=== PATIENT | male | born 1980 | race Caucasian/White ===

== ENCOUNTER 2016-09-29 15:58 | Emergency (ER) | payer OTHER ==
[2016-09-29 16:12] VITALS: O2SAT 98
--- NOTE | 2016-09-29 16:13 | ED.PDOC ---
History of Present Illness - General Chief Complaint: Lower Extremity Injury Stated Complaint: left ankle injury Time Seen by Provider: 09/29/16 16:08 Source: patient, RN notes reviewed, Vital Signs reviewed Exam Limitations: no limitations - History of Present Illness Initial Comments: Patient reports that he rolled his left ankle about 1.5 hours ago. Pain, swelling of ankle with limited weight-bearing and ROM. Occurred: just prior to arrival Pain - Lower Extremity: moderate: Left Ankle Method of Injury: twisted Improving Factors: cold therapy, immobilization, rest Worsening Factors: movement Allergies/Adverse Reactions: Allergies Amoxicillin Allergy (Unknown, Verified 01/23/13 16:22) Home Medications: Ambulatory Orders Acetaminophen W/ Codeine [Tylenol w/Codeine 300-30 mg] 1 tab PO Q4HR PRN #30 tab 02/15/16 Review of Systems - Review of Systems Constitutional: States: no symptoms reported Respiratory: States: no symptoms reported Cardiology: States: no symptoms reported Musculoskeletal: States: see HPI, joint pain - L ankle, joint swelling - L ankle Skin: States: no symptoms reported. Denies: change in color Neurological: States: no symptoms reported. Denies: numbness, paresthesia, tingling, weakness Endocrine: States: no symptoms reported Past Medical History (General) - Patient Medical History Hx Seizures: No Hx Stroke: No Hx Dementia: No Hx Asthma: No Hx of COPD: No Hx Cardiac Disorders: No Hx Congestive Heart Failure: No Hx Pacemaker: No Hx Hypertension: No Hx Thyroid Disease: No Hx Diabetes: Yes Hx Gastroesophageal Reflux: No Hx Renal Disease: No Hx Cancer: No Hx of HIV: No Hx Hepatitis C: No Hx MRSA: No - Vaccination History Hx Tetanus, Diphtheria Vaccination: No Hx Influenza Vaccination: No Hx Pneumococcal Vaccination: No - Social History Hx Tobacco Use: No Hx Alcohol Use: No Hx Substance Use: No Hx Substance Use Treatment: No Hx Depression: No Family Medical History - Family History Mother Family History: No Known Physical Exam - Physical Exam General Appearance: Alert, Comfortable, No apparent distress, Well Developed, Well Groomed, Well Hydrated, Well Nourished Cardiovascular/Respiratory: normal peripheral pulses, no respiratory distress Thigh/Hip: normal inspection, non-tender, no evidence of injury Leg: normal inspection, non-tender, no evidence of injury Knee: normal inspection, non-tender, no evidence of injury, normal ROM Ankle: bone tenderness - Left lateral ankle, limited ROM, soft tissue tenderness , swelling Foot: normal inspection, non-tender, no evidence of injury, normal ROM Neuro/Tendon: normal sensation, normal motor functions, normal tendon functions Mental Status: alert, oriented x 3 Skin: normal color, warm/dry Progress - EKG/XRAY/CT XRAY: ankle - No fracture Departure - Departure Clinical Impression: Left ankle sprain Time of Disposition: 16:46 Disposition: Discharge to Home or Self Care Condition: Good Departure Forms: ED Discharge - Pt. Copy, Patient Portal Self Enrollment Diet: resume usual diet Activity: increase activity as tolerated Home Medications: Ambulatory Orders Acetaminophen W/ Codeine [Tylenol w/Codeine 300-30 mg] 1 tab PO Q4HR PRN #30 tab 02/15/16 Additional Instructions: Wear splint while up for 3-7 days Rest, Ice and Elevate foot
--- NOTE | 2016-09-29 16:39 | RAD ---
EXAM: Ankle,Left 3 Views CLINICAL INDICATION: 35-year-old male with pain status post rolling ankle. TECHNIQUE: Three views LEFT ankle were obtained in AP, lateral and oblique projections. COMPARISON: 03/20/2012. FINDINGS: There is no fracture or dislocation. The joint spaces are preserved. Mild soft tissue swelling at the level of the lateral malleolus. Small plantar heel spur and Achilles tendon enthesophyte. IMPRESSION: Mild lateral malleolar soft tissue swelling without findings to suggest fracture or dislocation. Electronically signed by: Natalya Haley MD 09/29/2016 4:38 PM [employer]
[2016-09-29 17:01] VITALS: BP 132/87; TEMP 98.4
== END 2016-09-29 17:00 | disposition home or self-care (01) ==
LOC: ER 15:58
DX: S93.402A Sprain of unspecified ligament of left ankle, initial encounter (principal); Z88.3 Allergy status to other anti-infective agents; X50.1XXA Overexertion from prolonged static or awkward postures, initial encounter; Y92.9 Unspecified place or not applicable

== ENCOUNTER 2017-04-19 13:01 | Emergency (ER) | payer OTHER ==
[2017-04-19] MEDS ORDERED: predniSONE 20 MG TAB PO ONE (13:28)
[2017-04-19 13:29] VITALS: BP 142/98; TEMP 97.8; O2SAT 96
[2017-04-19] MEDS ORDERED: MONTELUKAST 10 MG TAB PO ONE (13:29)
--- NOTE | 2017-04-19 13:31 | ED.PDOC ---
History of Present Illness - General Chief Complaint: Skin/Abrasion/Tear Stated Complaint: GENERALIZED RASH Time Seen by Provider: 04/19/17 13:02 Source: patient Exam Limitations: no limitations - History of Present Illness Initial Comments: he patient's 36-year-old male presenting to the emergency room secondary to what appears to be hives present on his torso and extremities for the last 5 days or so. He does have a history of asthmaand some seasonal allergies. He has been using some Benadryl. Has no evidence of an infectious cellulitis. No blisters or pustules. No oral lesions. No fevers. Timing/Duration: 1 week Severity: mild Improving Factors: nothing Worsening Factors: nothing Associated Symptoms: denies symptoms Allergies/Adverse Reactions: Allergies Amoxicillin Allergy (Unknown, Verified 01/23/13 16:22) Home Medications: Ambulatory Orders Acetaminophen W/ Codeine [Tylenol w/Codeine 300-30 mg] 1 tab PO Q4HR PRN #30 tab 02/15/16 Montelukast [Singulair] 10 mg PO DAILY #20 tab 04/19/17 Review of Systems - Review of Systems Constitutional: States: no symptoms reported EENTM: States: no symptoms reported Respiratory: States: no symptoms reported Cardiology: States: no symptoms reported Gastrointestinal/Abdominal: States: no symptoms reported Genitourinary: States: no symptoms reported Musculoskeletal: States: no symptoms reported Skin: States: see HPI Neurological: States: no symptoms reported Endocrine: States: no symptoms reported All other Systems: No Change from Baseline Past Medical History (General) - Patient Medical History Hx Seizures: No Hx Stroke: No Hx Dementia: No Hx Asthma: No Hx of COPD: No Hx Cardiac Disorders: No Hx Congestive Heart Failure: No Hx Pacemaker: No Hx Hypertension: No Hx Thyroid Disease: No Hx Diabetes: Yes Hx Gastroesophageal Reflux: No Hx Renal Disease: No Hx Cancer: No Hx of HIV: No Hx Hepatitis C: No Hx MRSA: No - Vaccination History Hx Tetanus, Diphtheria Vaccination: No Hx Influenza Vaccination: No Hx Pneumococcal Vaccination: No - Social History Hx Tobacco Use: No Hx Alcohol Use: No Hx Substance Use: No Hx Substance Use Treatment: No Hx Depression: No Hx Physical Abuse: No Hx Emotional Abuse: No Hx Suspected Abuse: No Family Medical History - Family History Mother Family History: No Known Physical Exam - Physical Exam General Appearance: Alert, Comfortable, No apparent distress Eye Exam: bilateral normal Ears, Nose, Throat: normal ENT inspection, normal pharynx Neck: full range of motion, supple Respiratory: lungs clear, normal breath sounds, no respiratory distress, no accessory muscle use Cardiovascular/Chest: normal peripheral pulses, no edema Peripheral Pulses: radial,right: 2+, radial,left: 2+, dorsalis pedis,right: 2+, dorsalis pedis,left: 2+ Gastrointestinal/Abdominal: non tender, soft Rectal Exam: deferred Back Exam: no CVA tenderness, no vertebral tenderness Extremity: normal range of motion, non-tender, no pedal edema, normal capillary refill Neurologic: alert, normal mood/affect, oriented x 3 Skin Exam: normal color Comments: with the exception of lesions on the torso and extremities are consistent with either nummular eczema or hives at different stages. Progress - Progress Progress: 04/19/17 13:31 the patient is a 36-year-old male presenting with what appears to be either hives or nummular eczema of less than a week's duration. The patient is given a dose of prednisone here today but this will not be continued due to his borderline diabetes. The patient will be placed on Singulair daily for the next few weeks. He can additionally take xyzal twice daily for the next few days and then once daily for at least a week after the symptoms have cleared. He needs to keep well-hydrated. He needs to follow up with his primary care doctor for his diabetes. ER warnings were given. Departure - Departure Clinical Impression: Full body hives Disposition: Discharge to Home or Self Care Condition: Fair Departure Forms: ED Discharge - Pt. Copy, Patient Portal Self Enrollment Instructions: DI for Hives Diet: diabetic diet Activity: increase activity as tolerated Referrals: Alondra Hand NP [Primary Care Provider] - 1-2 Weeks Prescriptions: Montelukast [Singulair] 10 mg PO DAILY #20 tab Home Medications: Ambulatory Orders Acetaminophen W/ Codeine [Tylenol w/Codeine 300-30 mg] 1 tab PO Q4HR PRN #30 tab 02/15/16 Montelukast [Singulair] 10 mg PO DAILY #20 tab 04/19/17 Additional Instructions: the patient is a 36-year-old male presenting with what appears to be either hives or nummular eczema of less than a week's duration. The patient is given a dose of prednisone here today but this will not be continued due to his borderline diabetes. The patient will be placed on Singulair daily for the next few weeks. He can additionally take xyzal twice daily for the next few days and then once daily for at least a week after the symptoms have cleared. He needs to keep well-hydrated. He needs to follow up with his primary care doctor for his diabetes. ER warnings were given.
== END 2017-04-19 13:48 | disposition home or self-care (01) ==
LOC: ER 13:01
DX: L50.9 Urticaria, unspecified (principal); Z88.3 Allergy status to other anti-infective agents

== ENCOUNTER 2017-12-22 20:49 | Emergency (ER) | payer OTHER ==
[2017-12-22] MEDS ORDERED: DEXAMETHASONE INJ 10 MG/ML VIAL IM ONE (21:09)
--- NOTE | 2017-12-22 21:09 | ED.PDOC ---
History of Present Illness - General Chief Complaint: Asthma Stated Complaint: SOB Time Seen by Provider: 12/22/17 21:08 Source: patient, family Exam Limitations: no limitations - History of Present Illness Initial Comments: Dariel Vidal 37 y/o male with history of asthma stated that he had sob and wheezing the last 2 days which got worse today .Had mowed his aunts lawn yesterday.He stated never had exacerbation but had some viral respiratory illness 5 years ago with recurrence of his asthma. Timing/Duration: other - see hpi Severity: moderate Possible Cause: occasional episodes, allergen exposure Improving Factors: nothing Worsening Factors: nothing Associated Symptoms: nasal congestion, nasal drainage Respiratory Risk Factors: exposure to allergen Allergies/Adverse Reactions: Allergies Amoxicillin Allergy (Unknown, Verified 01/23/13 16:22) Home Medications: Ambulatory Orders Acetaminophen W/ Codeine [Tylenol w/Codeine 300-30 mg] 1 tab PO Q4HR PRN #30 tab 02/15/16 Montelukast [Singulair] 10 mg PO DAILY #20 tab 04/19/17 Albuterol Inhaler [Ventolin Hfa Inhaler] 108 mcg IN Q4HR PRN #1 inh 12/22/17 Albuterol Sulfate Nebs [Proventil Nebs] 2.5 mg INH Q6HRS PRN #60 vial 12/22/17 predniSONE 20 mg PO DAILY 7 Days #7 tab 12/22/17 Review of Systems - Review of Systems Constitutional: States: no symptoms reported EENTM: States: nose congestion Respiratory: States: see HPI Cardiology: States: no symptoms reported Gastrointestinal/Abdominal: States: no symptoms reported All other Systems: Reviewed and Negative, No Change from Baseline Past Medical History (General) - Patient Medical History Hx Seizures: No Hx Stroke: No Hx Dementia: No Hx Asthma: Yes Hx of COPD: No Hx Cardiac Disorders: No Hx Congestive Heart Failure: No Hx Pacemaker: No Hx Hypertension: No Hx Thyroid Disease: No Hx Diabetes: Yes Hx Gastroesophageal Reflux: No Hx Renal Disease: No Hx Cancer: No Hx of HIV: No Hx Hepatitis C: No Hx MRSA: No Surgical History: no surgical history - Vaccination History Hx Tetanus, Diphtheria Vaccination: No Hx Influenza Vaccination: No Hx Pneumococcal Vaccination: No - Social History Hx Tobacco Use: No Hx Alcohol Use: No Hx Substance Use: No Hx Substance Use Treatment: No Hx Depression: No Hx Physical Abuse: No Hx Emotional Abuse: No Hx Suspected Abuse: No Family Medical History - Family History Mother Family History: No Known Hx Family Asthma: Yes - children Father Hx Family Asthma: No Hx Family Congestive Heart Failure: No Hx Family Hypertension: No Hx Family Stroke: No Hx Cardiac Disease: No Hx Family Diabetes: Yes Hx Family Cancer: No Physical Exam - Physical Exam General Appearance: Alert, Comfortable, No apparent distress Eye Exam: bilateral normal ENT Exam: nasal congestion, nasal drainage Neck: full range of motion, supple, normal inspection, trachea midline Respiratory: no respiratory distress, no accessory muscle use, wheezing Cardiovascular/Chest: normal peripheral pulses, regular rate, rhythm, no murmur Gastrointestinal/Abdominal: normal bowel sounds, non tender, soft, no organomegaly Extremity: no pedal edema, no calf tenderness Neurologic: alert, oriented x 3 Skin Exam: normal color, warm/dry Progress - Progress Progress: 12/22/17 21:58 Vital Signs - 8 hr 12/22/17 12/22/17 20:50 21:28 Temperature 98.5 F Pulse Rate [ 108 H Left Arm] Respiratory 18 18 Rate Blood Pressure 136/91 [Left Arm] O2 Sat by Pulse 97 Oximetry 12/22/17 22:24 Re examined after breathing treatment and given steroids no wheezing on auscultation - EKG/XRAY/CT XRAY: chest - no acute cardiopulmonary disease Departure - Departure Clinical Impression: Asthma exacerbation Time of Disposition: 22:01 Disposition: Discharge to Home or Self Care Condition: Good Departure Forms: ED Discharge - Pt. Copy, Patient Portal Self Enrollment Instructions: DI for Asthma -- Adult Referrals: Blanca Daly NP [Primary Care Provider] - 1-2 Weeks Prescriptions: Albuterol Inhaler [Ventolin Hfa Inhaler] 108 mcg IN Q4HR PRN #1 inh PRN Reason: Wheezing Albuterol Sulfate Nebs [Proventil Nebs] 2.5 mg INH Q6HRS PRN #60 vial PRN Reason: Wheezing predniSONE 20 mg PO DAILY 7 Days #7 tab Home Medications: Ambulatory Orders Acetaminophen W/ Codeine [Tylenol w/Codeine 300-30 mg] 1 tab PO Q4HR PRN #30 tab 02/15/16 Montelukast [Singulair] 10 mg PO DAILY #20 tab 04/19/17 Albuterol Inhaler [Ventolin Hfa Inhaler] 108 mcg IN Q4HR PRN #1 inh 12/22/17 Albuterol Sulfate Nebs [Proventil Nebs] 2.5 mg INH Q6HRS PRN #60 vial 12/22/17 predniSONE 20 mg PO DAILY 7 Days #7 tab 12/22/17 Additional Instructions: Return to ER as needed;follow up with primary Md 29 Dec 2017
[2017-12-22] MEDS ORDERED: IPRATROPIUM/ALBUTEROL 3 ML VIAL NEB ONE ×2 (21:10→22:00)
--- NOTE | 2017-12-22 21:40 | RAD ---
EXAM DESCRIPTION: Chest,1 View CLINICAL HISTORY: sob/wheezing COMPARISON: 01/22/2013 FINDINGS: Cardiac silhouette is within normal limits. There is no focal parenchymal or pleural disease. Visualized osseous structures are within normal limits. IMPRESSION: No evidence of acute cardiopulmonary disease. Electronically signed by: Kofi Farnsworth 12/22/2017 9:38 PM CDT
[2017-12-22 22:08] VITALS: BP 135/90; TEMP 98.2
[2017-12-22 22:41] VITALS: O2SAT 98
== END 2017-12-22 22:41 | disposition home or self-care (01) ==
LOC: ER 20:49
DX: J45.901 Unspecified asthma with (acute) exacerbation (principal); E11.9 Type 2 diabetes mellitus without complications; Z79.899 Other long term (current) drug therapy
CPT/HCPCS: 71045; 94640; J1100; J7620

== ENCOUNTER 2018-02-08 22:56 | Emergency (ER) | payer OTHER ==
[2018-02-08 23:14] VITALS: BP 165/101; TEMP 97.5; O2SAT 99
[2018-02-08] MEDS ORDERED: HYDROcodone 7.5MG/APAP 325MG 1 EA TAB PO ONE (23:19)
--- NOTE | 2018-02-08 23:30 | ED.PDOC ---
History of Present Illness - General Chief Complaint: Back Pain or Injury Stated Complaint: chronic low back pain Time Seen by Provider: 02/08/18 23:15 Source: patient Exam Limitations: no limitations - History of Present Illness Initial Comments: the patient is a 37-year-old male presenting to emergency room secondary to primarily left lower back discomfort adjacent to L2-L4. The patient has had long-standing low back issues off and on over the years.e has gained weight recently. He has not been taking care of his blood pressure or his diabetes. No trauma. No neurological changes. No pain over the spinous processes. No step-off. No bruising. No obvious deformity. No incontinence. No weakness. Timing/Duration: 1 week Severity: moderate Improving Factors: nothing Worsening Factors: nothing Associated Symptoms: denies symptoms Allergies/Adverse Reactions: Allergies Amoxicillin Allergy (Unknown, Verified 01/23/13 16:22) Home Medications: Ambulatory Orders Albuterol Sulfate Nebs [Proventil Nebs] 2.5 mg INH Q6HRS PRN #60 vial 12/22/17 Qcbejuvhrloei-Gydw-Aevumysayt [Fioricet] 1 ea PO Q8H PRN #21 tab 02/08/18 Cyclobenzaprine HCl [Flexeril] 5 mg PO TID PRN #30 tab 02/08/18 Glipizide 5 mg PO DAILY #20 tab 02/08/18 Review of Systems - Review of Systems Constitutional: States: no symptoms reported EENTM: States: no symptoms reported Respiratory: States: no symptoms reported Cardiology: States: no symptoms reported Gastrointestinal/Abdominal: States: no symptoms reported Genitourinary: States: no symptoms reported Musculoskeletal: States: back pain Skin: States: no symptoms reported Neurological: States: no symptoms reported All other Systems: No Change from Baseline Past Medical History (General) - Patient Medical History Hx Seizures: No Hx Stroke: No Hx Dementia: No Hx Asthma: Yes Hx of COPD: No Hx Cardiac Disorders: No Hx Congestive Heart Failure: No Hx Pacemaker: No Hx Hypertension: Yes - no meds Hx Thyroid Disease: No Hx Diabetes: Yes - Dx in past, but taken off meds Hx Gastroesophageal Reflux: No Hx Renal Disease: No Hx Cancer: No Hx of HIV: No Hx Hepatitis C: No Hx MRSA: No Surgical History: tonsillectomy - Vaccination History Hx Tetanus, Diphtheria Vaccination: No Hx Influenza Vaccination: No Hx Pneumococcal Vaccination: No Immunizations Up to Date: No - Social History Hx Tobacco Use: No Hx Alcohol Use: No Hx Substance Use: No Hx Substance Use Treatment: No Hx Depression: No Hx Physical Abuse: No Hx Emotional Abuse: No Hx Suspected Abuse: No - Triage Comment ED Triage Comment: Pain to low back over past 6 years, pain occurring more frequently over the years. Has appt with PCP Family Medical History - Family History Mother Family History: No Known Living Status: Still Living Hx Family Asthma: Yes - children Hx Family Congestive Heart Failure: No Hx Family Hypertension: No Hx Family Stroke: No Hx Cardiac Disease: No Hx Family Diabetes: No Hx Family Cancer: No Hx Family;Other: Smoker Father Hx Family Asthma: No Hx Family Congestive Heart Failure: No Hx Family Hypertension: No Hx Family Stroke: No Hx Cardiac Disease: No Hx Family Diabetes: Yes Hx Family Cancer: No Physical Exam - Physical Exam General Appearance: Alert, No apparent distress Eye Exam: bilateral normal Ears, Nose, Throat: hearing grossly normal, normal ENT inspection, normal pharynx Neck: full range of motion, supple Respiratory: no respiratory distress, no accessory muscle use Cardiovascular/Chest: normal peripheral pulses, no edema, other - regular rate Peripheral Pulses: radial,right: 2+, radial,left: 2+ Gastrointestinal/Abdominal: non tender, soft Rectal Exam: deferred Back Exam: no vertebral tenderness, other - see history of present illness. Muscle spasm is palpable. Extremity: non-tender, normal inspection, no pedal edema, normal capillary refill Neurologic: rn transport II-XII nml as tested, alert, normal mood/affect, oriented x 3 Skin Exam: normal color Comments: Vital Signs - 24 hr 02/08/18 23:10 Temperature 97.5 F L Pulse Rate [ 88 Right] Respiratory 20 Rate Blood Pressure 165/101 [Left Arm] O2 Sat by Pulse 99 Oximetry Progress - Progress Progress: 02/08/18 23:31 the patient's 37-year-old male presenting with recurrent chronic low back pain. He will be written for Fioricet for as needed use. When he is taking this he does not need to take additional Tylenol. Additionally he will be written for Flexeril for 3 times daily use to help as a muscle relaxer. Additionally the patient has uncontrolled diabetes at this point. He is being written for glipizide to start at 5 mg daily with the first dose being given tonight. He needs to resume his diabetic diet. He needs to work on weight loss. He needs to do exercises to both help with his diabetes and with the weight loss and the back pain in the forms of either swimming, bicycling or rowing. I do recommend that he visit a chiropractor tomorrow to see if they can help with some immediate relief for his low back pain. The patient does need follow-up with his primary care doctor for additional testing and treatment of his diabetes and hypertension. ER warnings were given for any acute worsening. he does need to increase his water intake until his blood sugars are better controlled. Departure - Departure Clinical Impression: Chronic low back pain Qualifiers: Back pain laterality: left Sciatica presence: without sciatica Qualified Code(s ): M54.5 - Low back pain; G89.29 - Other chronic pain Uncontrolled type 2 diabetes mellitus Qualifiers: Diabetes mellitus complication status: with unspecified complications Diabetes mellitus supervisor intermediates insulin use: without supervisor intermediates use Qualified Code(s): E11.8 - Type 2 diabetes mellitus with unspecified complications; E11.65 - Type 2 diabetes mellitus with hyperglycemia Disposition: Discharge to Home or Self Care Condition: Fair Departure Forms: ED Discharge - Pt. Copy, Patient Portal Self Enrollment Instructions: DI for Low Back Pain, Type 2 Diabetes Diet: diabetic diet Activity: increase activity as tolerated Referrals: Ana Eagle NP [Primary Care Provider] - 1-2 Weeks Prescriptions: Axeodaankmwxj-Angx-Lnjlayoovl [Fioricet] 1 ea PO Q8H PRN #21 tab PRN Reason: Pain Cyclobenzaprine HCl [Flexeril] 5 mg PO TID PRN #30 tab PRN Reason: Muscle Spasms Glipizide 5 mg PO DAILY #20 tab Home Medications: Ambulatory Orders Albuterol Sulfate Nebs [Proventil Nebs] 2.5 mg INH Q6HRS PRN #60 vial 12/22/17 Yzoxyndelfsjj-Tbrd-Ahwestgmpn [Fioricet] 1 ea PO Q8H PRN #21 tab 02/08/18 Cyclobenzaprine HCl [Flexeril] 5 mg PO TID PRN #30 tab 02/08/18 Glipizide 5 mg PO DAILY #20 tab 02/08/18 Additional Instructions: the patient's 37-year-old male presenting with recurrent chronic low back pain. He will be written for Fioricet for as needed use. When he is taking this he does not need to take additional Tylenol. Additionally he will be written for Flexeril for 3 times daily use to help as a muscle relaxer. Additionally the patient has uncontrolled diabetes at this point. He is being written for glipizide to start at 5 mg daily with the first dose being given tonight. He needs to resume his diabetic diet. He needs to work on weight loss. He needs to do exercises to both help with his diabetes and with the weight loss and the back pain in the forms of either swimming, bicycling or rowing. I do recommend that he visit a chiropractor tomorrow to see if they can help with some immediate relief for his low back pain. The patient does need follow-up with his primary care doctor for additional testing and treatment of his diabetes and hypertension. ER warnings were given for any acute worsening. he does need to increase his water intake until his blood sugars are better controlled.
[2018-02-08] MEDS ORDERED: glipiZIDE 5 MG TAB ONE (23:31)
[2018-02-09] MEDS ORDERED: glipiZIDE 5 MG TAB PO ONE (23:28)
== END 2018-02-08 23:42 | disposition home or self-care (01) ==
LOC: ER 22:56
DX: G89.29 Other chronic pain (principal); M54.5 Low back pain; E11.65 Type 2 diabetes mellitus with hyperglycemia; J45.909 Unspecified asthma, uncomplicated; I10 Essential (primary) hypertension; Z79.84 Long term (current) use of oral hypoglycemic drugs

== ENCOUNTER → 2018-05-20 | Outpatient (CLI) | payer OTHER | LOC: LAB.O 09:07 | PROVIDERS: ATTEND Nurse Practitioner Family | DX: E11.65 Type 2 diabetes mellitus with hyperglycemia (principal) ==

== ENCOUNTER 2019-06-10 23:06 | Emergency (ER) | payer SELFPAY ==
[2019-06-10 23:22] VITALS: TEMP 97.6
[2019-06-10] MEDS ORDERED: TETANUS,DIPHTHERIA,PERTUSSIS 1 EA SYG IM ONE (23:27)
[2019-06-10] MEDS ORDERED: SULFA/TRIMETH 800/160 (DS) TAB 1 EA TAB PO ONE (23:27)
--- NOTE | 2019-06-10 23:32 | ED.PDOC ---
History of Present Illness - General Chief Complaint: Skin/Abrasion/Tear Stated Complaint: stepped on nail Time Seen by Provider: 06/10/19 23:29 Source: patient Exam Limitations: no limitations - History of Present Illness Initial Comments: the patient is a 38-year-old male presenting to the emergency room after having stepped on a nail that went through his work boots and her bottom part of his foot between the third and fourth distal metatarsals. No evidence of any bony crepitus. He was ambulatory on it afterwards. It is a typical puncture wound approximately 3 mm to 4 mm in diameter. It is not grossly contaminated. The patient is not up-to-date on his He reports no new allergies. No other injuries. Timing/Duration: momentarily Severity: moderate Improving Factors: nothing Worsening Factors: nothing Associated Symptoms: denies symptoms Allergies/Adverse Reactions: Allergies Amoxicillin Allergy (Unknown, Verified 12/12/18 21:36) Home Medications: Ambulatory Orders Cyclobenzaprine HCl [Flexeril] 5 mg PO TID PRN #30 tab 02/08/18 Bupropion HCl [Wellbutrin Sr] 150 mg PO BID 06/10/19 Ciprofloxacin [Cipro] 500 mg PO BID #14 tab 06/10/19 Glipizide 20 mg PO BID 06/10/19 Ibuprofen 800 mg PO TID PRN 06/10/19 Insulin Glargine 100U/ml [Lantus] 10 unit SUBCU BEDTIME 06/10/19 Lisinopril 5 mg PO DAILY 06/10/19 Sulfa/Trimeth 800/160 (Ds) Tab [Bactrim DS Tab] 1 ea PO BID #14 tab 06/10/19 metFORMIN XR [Glucophage XR] 1,000 mg PO BID 06/10/19 Review of Systems - Review of Systems Constitutional: States: no symptoms reported EENTM: States: no symptoms reported Respiratory: States: no symptoms reported Cardiology: States: no symptoms reported Gastrointestinal/Abdominal: States: no symptoms reported Genitourinary: States: no symptoms reported Musculoskeletal: States: see HPI Skin: States: see HPI Neurological: States: no symptoms reported Endocrine: States: no symptoms reported All other Systems: No Change from Baseline Past Medical History (General) - Patient Medical History Hx Seizures: No Hx Stroke: No Hx Dementia: No Hx Asthma: Yes Hx of COPD: No Hx Cardiac Disorders: No Hx Congestive Heart Failure: No Hx Pacemaker: No Hx Hypertension: Yes - no meds Hx Thyroid Disease: No Hx Diabetes: Yes - Dx in past, but taken off meds Hx Gastroesophageal Reflux: No Hx Renal Disease: No Hx Cancer: No Hx of HIV: No Hx Hepatitis C: No Hx MRSA: No - Vaccination History Hx Tetanus, Diphtheria Vaccination: No Hx Influenza Vaccination: No Hx Pneumococcal Vaccination: No - Social History Hx Tobacco Use: No Hx Alcohol Use: No Hx Substance Use: No Hx Substance Use Treatment: No Hx Depression: No Hx Physical Abuse: No Hx Emotional Abuse: No Hx Suspected Abuse: No Family Medical History - Family History Mother Family History: No Known Living Status: Still Living Hx Family Asthma: Yes - children Hx Family Congestive Heart Failure: No Hx Family Hypertension: No Hx Family Stroke: No Hx Cardiac Disease: No Hx Family Diabetes: No Hx Family Cancer: No Hx Family;Other: Smoker Father Hx Family Asthma: No Hx Family Congestive Heart Failure: No Hx Family Hypertension: No Hx Family Stroke: No Hx Cardiac Disease: No Hx Family Diabetes: Yes Hx Family Cancer: No Physical Exam - Physical Exam General Appearance: Alert, Comfortable, No apparent distress Eye Exam: bilateral normal Ears, Nose, Throat: hearing grossly normal Neck: full range of motion Respiratory: no respiratory distress, no accessory muscle use Cardiovascular/Chest: normal peripheral pulses, no edema Peripheral Pulses: dorsalis pedis,right: 2+, dorsalis pedis,left: 2+ Gastrointestinal/Abdominal: other - obese Rectal Exam: deferred Extremity: normal range of motion, no pedal edema, no calf tenderness, normal capillary refill, other - see history of present illness Neurologic: svp II-XII nml as tested, alert, normal mood/affect, oriented x 3 Skin Exam: normal color - puncture wound as above. Comments: Vital Signs - 24 hr 06/10/19 23:19 Temperature 97.6 F Pulse Rate [ 93 H Pulse Ox] Respiratory 20 Rate Blood Pressure 159/113 [L Arm] O2 Sat by Pulse 96 Oximetry Progress - Progress Progress: 06/10/19 23:32 the patient is a 38-year-old male who sustained a puncture wound with a nail to the distal aspect of his left foot. The wound was irrigated after risk and benefits were explained, with 250 cc of sterile saline. ALONSO and a Band-Aid were applied. The patient received a tetanus shot and a dose of Bactrim. He needs to wash the wound several times daily with an antibacterial soap and water. Keep the wound covered with a Band-Aid and Neosporin. Monitor for any evidence of infection. He is going to be placed on both ciprofloxacin and Bactrim for the next week. ER warnings were given for any significant worsening. [email or web address] [email or web address] [id number] Departure - Departure Clinical Impression: Puncture wound of foot Qualifiers: Encounter type: initial encounter Laterality: left Qualified Code(s): S91.332A - Puncture wound without foreign body, left foot, initial encounter Disposition: Discharge to Home or Self Care Condition: Fair Departure Forms: ED Discharge - Pt. Copy, Patient Portal Self Enrollment Instructions: DI for Wound Infection Diet: diabetic diet Activity: increase activity as tolerated Referrals: Gerber Oneil MD [Primary Care Provider] - 1-2 Weeks Prescriptions: Ciprofloxacin [Cipro] 500 mg PO BID #14 tab Sulfa/Trimeth 800/160 (Ds) Tab [Bactrim DS Tab] 1 ea PO BID #14 tab Home Medications: Ambulatory Orders Cyclobenzaprine HCl [Flexeril] 5 mg PO TID PRN #30 tab 02/08/18 Bupropion HCl [Wellbutrin Sr] 150 mg PO BID 06/10/19 Ciprofloxacin [Cipro] 500 mg PO BID #14 tab 06/10/19 Glipizide 20 mg PO BID 06/10/19 Ibuprofen 800 mg PO TID PRN 06/10/19 Insulin Glargine 100U/ml [Lantus] 10 unit SUBCU BEDTIME 06/10/19 Lisinopril 5 mg PO DAILY 06/10/19 Sulfa/Trimeth 800/160 (Ds) Tab [Bactrim DS Tab] 1 ea PO BID #14 tab 06/10/19 metFORMIN XR [Glucophage XR] 1,000 mg PO BID 06/10/19 Additional Instructions: the patient is a 38-year-old male who sustained a puncture wound with a nail to the distal aspect of his left foot. The wound was irrigated after risk and benefits were explained, with 250 cc of sterile saline. ALONSO and a Band-Aid were applied. The patient received a tetanus shot and a dose of Bactrim. He needs to wash the wound several times daily with an antibacterial soap and water. Keep the wound covered with a Band-Aid and Neosporin. Monitor for any evidence of infection. He is going to be placed on both ciprofloxacin and Bactrim for the next week. ER warnings were given for any significant worsening.
[2019-06-10] MEDS ORDERED: NEOMYCIN-BACITRACIN-POLYMYXIN 0.9 GM UD TOP ONE (23:36)
[2019-06-10 23:45] VITALS: BP 150/92; O2SAT 97
== END 2019-06-10 23:44 | disposition home or self-care (01) ==
LOC: ER 23:06
DX: S91.332A Puncture wound without foreign body, left foot, initial encounter (principal); J45.909 Unspecified asthma, uncomplicated; I10 Essential (primary) hypertension; W45.0XXA Nail entering through skin, initial encounter; Z88.1 Allergy status to other antibiotic agents; Y92.9 Unspecified place or not applicable